=== PATIENT | male | born 1955 | race Caucasian/White ===

== ENCOUNTER 2019-08-02 01:09 | Day surgery (SDC) | payer OTHER, SELFPAY ==
[2019-07-24 15:25] VITALS: BMI 24.3
--- NOTE | 2019-08-01 08:22 | PM.IMHP ---
H&P: HPI History of Present Illness Chief complaint: Left Knee Prepatellar Bursitis Narrative: Chidi Branch is a 63 year old male chief complaint left knee pain and swelling. Fluid anterior to the patella. Has had multiple aspirations. Fluid continues to recur causing prominence and pain with motion and pressure. Lt knee pain/swelling. Last injection on 06/21. Involved knee: left Onset: gradual Location of pain: anterior and other (patella) Character: dull ache Timing of pain: constant Exacerbated by: prolonged activity Relieved by: other (injection and aspiration of fluid) Associated symptoms: Reports swelling and erythema History of occupational/recreational activity with repetitive motion: No History of prior knee injury: No *Chief Complaint Chief Complaint: see Reason for Visit Duration: years Severity: moderate Associated signs and symptoms: symptoms reported: (see hpi ) Exacerbating/relieving factors: exacerbating factors: (see hpi ) and relieving factors: (see hpi ) Review of Systems Constitutional: Constitutional: Denies fever(s) Eyes: Eyes: Denies blurry vision ENT: Reports Normal hearing present Cardiovascular: Cardiovascular: Denies chest pain and Denies dyspnea Respiratory: Respiratory: Denies dyspnea and Denies wheezing Gastrointestinal: Gastrointestinal: Denies abdominal pain Genitourinary: Genitourinary: Denies urinary urgency Musculoskeletal: Musculoskeletal: Reports as per HPI and Denies numbness Integumentary/Breasts: Skin/Breast: Denies changing lesions and Denies sores Neurologic: Reports Normal hearing present, Denies behavioral changes, Denies confusion, Denies numbness and Denies convulsions Psychiatric: Psychiatric: Denies behavioral changes, Denies confusion and Denies hallucinations Endocrine: Endocrine: Denies heat intolerance Hematologic/Lymphatic: Hematologic/Lymphatic: Denies easy bleeding Allergic/Immunologic: Allergic/Immunologic: Denies wheezing PMF Past Medical History Medical History Prepatellar bursitis Family History Family History Father Cerebrovascular accident Family history of heart disease in male family member before age 55 Other Diabetes mellitus Hypertension Social History Social History Smoking status: Never smoker Alcohol intake: current Meds Home Medications and Allergies Home Medications Medication Instructions Recorded Confirmed Type lisinopril 20 mg tablet 20 mg PO DAILY #90 tablet 07/18/19 07/24/19 Rx metformin 1,000 mg PO QPM 07/24/19 07/24/19 History multivitamin 1 tablet PO DAILY 07/24/19 07/24/19 History omega 3-kco-eim-fish oil [Fish Oil] 1 cap PO DAILY 07/24/19 07/24/19 History sildenafil (pulm.hypertension) 20 mg PO DIRECTED 07/24/19 07/24/19 History simvastatin 80 mg PO QPM 07/24/19 07/24/19 History Allergies Allergy/AdvReac Type Severity Reaction Status Date / Time cephalexin Allergy Unknown Pruritic Verified 07/24/19 15:27 rash Cephalosporins Allergy Unknown RASH Verified 07/24/19 15:27 Sulfa (Sulfonamide Allergy Unknown Unknown Verified 07/24/19 15:27 Antibiotics) Exam Extrem: Other: Const Constitutional General: healthy appearing; No in distress or confused Orientation/consciousness: oriented to person, oriented to place, oriented to time and No confused HENAK Head: normal to inspection, normocephalic and atraumatic Eyes Conjunctivae: Yes conjunctivae normal Sclera: sclerae normal Neck Neck: Yes supple and No tender Resp Effort & Inspection: normal respiratory effort and no audible wheezes Cardio Rate: Yes regular rate Rhythm: regular rhythm Skin General skin exam: no rashes or lesions noted Neuro General: Yes oriented to person, Yes oriented to place, Yes oriented to time and No confusion Extrem Right upper extremity: n
--- NOTE | 2019-08-02 07:15 | WPDHPUPDATE1 ---
History and Physical Update Update Date/Time: 08/02/19 07:15 History and Physical has been reviewed, including an updated exam of the patient. There are NO changes in the patient's condition. Risks, benefits, and alternatives have been discussed and questions answered. Patient agrees to proceed with procedure.
[2019-08-02] MEDS: LACTATED RINGERS 1,000 ML 30 ML IV CONT (10:00)
[2019-08-02] MEDS: IBUPROFEN IV 800 MG/200 ML 800 MG/200 ML BAG 400 MG IVPB (10:09)
[2019-08-02 10:13] VITALS: BP 146/81; PULSE 65; RESP 16; TEMP 36; O2SAT 100
--- NOTE | 2019-08-02 10:58 | P.PNAN_ITS ---
Anes - Initial Pre Proc Eval Procedure: Operation Date: 08/02/19 11:30 Proposed Procedures p Excision Prepatellar Bursa Left Knee - Nino Costello MD Date/Time: 08/02/19 10:58 Surgeon: Nino Costello MD Pre Op Diagnosis: Left Knee Prepatellar Bursitis Patient Data Age: 63 Gender: M Height: 1.91 m Weight: 89 kg Last Vital Signs Temp 36.0 C L 08/02/19 10:13 Pulse 65 08/02/19 10:13 Resp 16 08/02/19 10:13 BP 146/81 H 08/02/19 10:13 Pulse Ox 100 08/02/19 10:13 Allergies Allergy/AdvReac Type Severity Reaction Status Date / Time Cephalosporins Allergy Severe RASH Verified 08/02/19 09:42 cephalexin Allergy Unknown Pruritic Verified 07/24/19 15:27 rash Home Medications Medication Instructions Recorded Confirmed Type lisinopril 20 mg tablet 20 mg PO DAILY #90 tablet 07/18/19 08/02/19 Rx metformin 1,000 mg PO QPM 07/24/19 08/02/19 History multivitamin 1 tablet PO DAILY 07/24/19 08/02/19 History omega 8-bqx-qwa-fish oil [Fish Oil] 1 cap PO DAILY 07/24/19 08/02/19 History sildenafil (pulm.hypertension) 20 mg PO DIRECTED 07/24/19 08/02/19 History simvastatin 80 mg PO QPM 07/24/19 08/02/19 History Patient hx anesthesia problems: none Family hx anesthesia problems: none PMFSH Past Medical History Medical History (Updated 08/02/19 @ 10:59 by Gurwinder Wilson MD) Diabetes HTN (hypertension) Hypercholesterolemia Prepatellar bursitis Psoriasis Family History Family History Father Cerebrovascular accident Family history of heart disease in male family member before age 55 Other Diabetes mellitus Hypertension Social History Social History Smoking status: Never smoker Alcohol intake: current Anes - Eval Final PreProcedure Day of Procedure 08/02/19 10:58 Patient weight: normal Heart: regular rate and rhythm Lungs: clear to auscultation and normal air movement Airway: Mallampati scale class II Neurological: alert and oriented Last oral intake: >/= 8 hours ASA classification: III Emergent: no Anesthetic plan: proceed Anesthesia type and monitoring: general LMA Informed Consent: The patient's anesthetic plan and its attendant risks and benefits were discussed with the patient/family/POA. Questions were solicited an d answers provided to the satisfaction of the patient/family/POA.
[2019-08-02] MEDS: CLINDAMYCIN 900 MG/NS 50 ML 900 MG/50 ML PIGGYBACK 50 MG IVPB (11:36)
[2019-08-02] MEDS: BUPIVACAINE/EPINEPHRINE 0.5% 30 ML VIAL INFILTRATE (11:55)
[2019-08-02 12:33] VITALS: BP 115/82; PULSE 65; RESP 14; TEMP 36.4; O2SAT 97
--- NOTE | 2019-08-02 12:42 | PM.PROC ---
Procedure Note - Detailed Date of procedure: 08/02/19 Pre-op diagnosis: Left Knee Prepatellar Bursitis Post-op diagnosis: same Procedure performed: Excision of bursa left knee Description of procedure: Patient identified in the preoperative holding. Informed consent given. Operative extremity marked. Patient received intravenous antibiotics. Patient brought to the operating room where underwent general anesthetic by anesthesia team. Positioned supine on operating room table. Time-out performed confirming the patient, site of the surgery and the plan. Left knee prepped and draped usual sterile surgical fashion using ChloraPrep skin solution. Local anesthetic with 0.5% Marcaine with epinephrine used around the prepatellar bursa. Longitudinal incision made with 15 blade knife over the bursa which was rather large. Approximately 50 mm x 40 mm in size. Incision deepened down through subcutaneous tissue and the interval between the subcutaneous tissue and the bursal sac itself was developed proximally distally medially and laterally. The bursa sac was then elevated off of the deep fascial tissue with blunt as well as sharp dissection. The bursal sac was then removed. It was noted be full of clear appearing serous fluid. Any extra bursal tissue was sharply excised with a 15 blade knife. Bleeding points were coagulated with electrocautery. Wound was thoroughly irrigated antibiotic solution. Deep tissue was approximated using 2 Vicryl interrupted suture. Subcutaneous tissue repaired with 3 0 Monocryl interrupted suture and the skin was approximated with a 3 0 Monocryl running subcuticular stitch. Sterile dressing was then applied followed by an Lawrence wrap. Patient was then awoke from anesthesia, extubated and taken to the recovery room in stable condition. All sponge needle and instrument counts correct in the case. Anesthesia: GLMA Surgeon: Nino Costello MD Mechanical Spreader Operator: 1st dam tender assistant Estimated blood loss (mL): 10 Tourniquet time (min): 0 Drains: No Packing: No Pathology: none sent Complications: None Condition: stable Disposition: PACU
[2019-08-02 12:45] VITALS: BP 130/90; PULSE 64; RESP 16; O2SAT 99
[2019-08-02 13:00] VITALS: BP 137/88; PULSE 67; RESP 16; O2SAT 100
[2019-08-02 13:06] VITALS: BP 138/87; PULSE 55; RESP 14
[2019-08-02 13:35] VITALS: BP 138/84; PULSE 69; RESP 14
== END 2019-08-02 13:49 | disposition home or self-care (01) ==
PROVIDERS: PCP Internal Medicine; Visit Provider Orthopaedic Surgery
PROC: (CPT 27340; principal; 2019-08-02 11:30)
DX: M70.42 Prepatellar bursitis, left knee (principal); I10 Essential (primary) hypertension; E11.9 Type 2 diabetes mellitus without complications; E78.00 Pure hypercholesterolemia, unspecified; L40.9 Psoriasis, unspecified; Z79.84 Long term (current) use of oral hypoglycemic drugs
CPT/HCPCS: 27340; J1100; J1580; J1741; J2250; J2405; J2704; J3010; J7120

== ENCOUNTER 2023-08-20 10:21 | Emergency (ER) | payer OTHER, SELFPAY ==
[2023-08-20 10:35] VITALS: BP 130/71; PULSE 66; RESP 16; TEMP 36.7; O2SAT 99
--- NOTE | 2023-08-20 11:02 | ED.URI ---
HPI - URI/Sore Throat General Chief Complaint: Upper Respiratory Infection Stated Complaint: Chest Congestion;Cough Time Seen by Provider: 08/20/23 10:54 Source: patient and RN notes reviewed Mode of arrival: ambulatory Limitations: no limitations History of Present Illness HPI Narrative: Patient presents today complaining of a 2 week history of cough that was worse last night. Denies fever shortness of breath. He also reports some mild rhinorrhea. He has tried Tylenol, ibuprofen, Delsym, Em, and Zicam. He felt that the Em and Zicam were helpful. No history of asthma or COPD. He is a nonsmoker. Related Data Home Medications Medication Instructions Recorded Confirmed multivitamin 1 tablet PO DAILY 07/24/19 12/22/22 omega 0-hsx-dpa-fish oil 1,000 mg 1 cap PO DAILY 07/24/19 12/22/22 (120 mg-180 mg) capsule (Fish Oil) Allergies Allergy/AdvReac Type Severity Reaction Status Date / Time cephalexin Allergy Severe Pruritic Verified 09/09/22 10:59 rash Cephalosporins Allergy Severe RASH Verified 09/09/22 10:59 Review of Systems Review of Systems: CONSTITUTIONAL: Denies body aches, fever, chills, or sweats. EYES: Denies visual changes, redness, or discharge. ENT: Denies congestion, sore throat, or otalgia.+ rhinorrhea CARDIOVASCULAR: Denies chest pain, palpitations, or edema. RESPIRATORY: Denies dyspnea.+ cough GASTROINTESTINAL: Denies abdominal pain, nausea, vomiting, or diarrhea. GENITOURINARY: Denies dysuria or hematuria. SKIN: Denies rash, itching, or wounds. MUSCULOSKELETAL: Denies back pain, joint pain, or myalgia. NEUROLOGIC: Denies headache, numbness, tingling, or weakness. PSYCH: Denies depression or anxiety. [facility] Past Medical History Medical History Diabetes Epidermal inclusion cyst HTN (hypertension) Hypercholesterolemia Lateral dislocation of left patella Prepatellar bursitis Psoriasis URI (upper respiratory infection) Surgical History Surgical History H/O cervical discectomy H/O toe surgery Hx of inguinal hernia surgery Family History Family History Father Cerebrovascular accident Family history of heart disease in male family member before age 55 Other Diabetes mellitus Hypertension Social History Social History Smoking status: Never smoker Alcohol intake: current Drinks per week: 4 Substance use: never Substance use type: does not use Lack of Transportation: No Lack of Food: Never True Current Housing: I Have Housing Concerned About Future Housing: No Difficulty Paying Gas/Electric Bills: No Difficulty Paying for Meds: No Currently Unemployed: No Difficulty w/ Childcare or Family Care: No Living arrangements: with family Occupation/Education: occupation Gender identity (if verbalized by the patient): Male Comments At time of signature, I have reviewed and agree with nursing past medical, surgical, social and family history unless otherwise noted. Please see nursing chart for further information. There is no relevant family history pertinent to the presenting complaint Exam Narrative: GENERAL: Well-appearing, well-nourished, and in no acute distress. HEAD: Normocephalic, atraumatic. EYES: EOMI. No redness or drainage. Conjunctivae normal. ENT: Mucous membranes pink and moist. Nares clear. No rhinorrhea. TMs normal bilaterally. Throat normal. Uvula midline. NECK: Normal AROM. Supple. No lymphadenopathy. CHEST: No respiratory distress. Inspiratory wheeze throughout. HEART: Regular rate and rhythm. No murmur appreciated. EXTREMITIES: Normal range of motion. No edema. SKIN: Warm, dry, no rash. Capillary refill normal. Normal skin turgor. NEURO: No focal deficits. Alert and
== END 2023-08-20 11:10 | disposition home or self-care (01) ==
PROVIDERS: Emergency Provider Nurse Practitioner; PCP Physician Assistant Medical
DX: J06.9 Acute upper respiratory infection, unspecified (principal); E11.9 Type 2 diabetes mellitus without complications; I10 Essential (primary) hypertension; E78.00 Pure hypercholesterolemia, unspecified; L40.9 Psoriasis, unspecified
CPT/HCPCS: 99213; G0463

== ENCOUNTER 2025-04-02 01:47 | Day surgery (SDC) | payer OTHER, SELFPAY ==
[2025-03-19 14:37] VITALS: BMI 24.3
--- OUTSIDE RECORDS SUMMARY | 2025-04-02 01:49 | XMS_ITS | Encounter Summary ---
Author Organization [facility] Address [address] [place] [address] Care Team Providers Care Tab Builder Name Role Phone Hay Mcclure MD Primary Care Provider [phone] Encounter Details Date Type Department Care Team (Late Contact Info) Description 10/09/2024 Telephone [facility] - Centralized Scheduling [address] [place] [id number] Abe Hickey MD [address] [place] [address] [place] [address] Social History Tobacco Use Types Packs/Day Years Used Date Smoking Tobacco: Never Smokeless Tobacco: Never Alcohol Use Standard Drinks/Week Comments Yes 0 (1 standard drink = 0.6 oz pur e alcohol) Sex and Gender Information Value Date Recorded Sex Assigned at Not on file Legal Sex Male 6:18 PM BOOK SEWER Gender Identity Not on file Sexual Orientation Not on file documented as of this encounter Miscellaneous Notes * Telephone Encounter - Singh Nava - 10/09/2024 3:24 PM CDT Pt calling to get med refill for Fluoroucil. Would like a call back in reference to this documented in this encounter Plan of Treatment Upcoming Encounters Date Type Department Care Team ([facility] Contact Info) Description 09/03/2025 2:20 PM BOOK SEWER Office Visit [facility] - Dermatology [address] [place] [address], [facility] [place] [id number] Abe Hickey MD [address] [facility] [address] [place] [address] documented as of this encounter Visit Diagnoses Not on filedocumented in this encounter Care Teams Tab Builder Relationship Specialty Start Date End Date Hay Mcclure MD [address] [address] PCP - General 04/05/14 documented as of this encounter
--- OUTSIDE RECORDS SUMMARY | 2025-04-02 01:49 | XMS_ITS | Clinical Summary ---
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 MANAGER Gender Identity Not on file Sexual Orientation Not on file Plan of Treatment Health Maintenance Due Date Last Done Comments Hepatitis C Virus (HCV) Screening 1955 TdaP Immunization 1957 Cologuard 2002 Colonoscopy 2002 Colorectal Cancer Screening 2002 Immunochemical Fecal Occult Blood 2002 Pneumococcal Immunization (5 0+ years) (1 of 1 - PCV) 11/13/2007 Zoster Immunization (2 of 3) 06/08/2017 04/13/2017 Influenza Immunization (#1) 03/04/202501/2017, 07/31/2016, 06/07/2012 SARS-COV-2 Immunization (3 - season) 2025 06/02/2021, 09/09/2020 Respiratory Syncytial Virus (RSV) Immunization (Adult) (1 - 1-dose 75+ series) 2032 Hepatitis B Immunization Aged Out No longer eligible based on patient's age to complete this topic Human Papillomavirus (HPV) Immunization Aged Out No longer eligible b ased on patient's age to complete this topic Meningococcal Immunization (ACWY) Aged Out No longer eligible b ased on patient's age to complete this topic Rotavirus Immunization Aged Out No lo nger eligible based on patient's age to complete this topic
--- OUTSIDE RECORDS SUMMARY | 2025-04-02 01:49 | XMS_ITS | Encounter Summary ---
Author Organization [facility] Address [address] [place] [address] Care Team Providers Care Bleach Chlorinator Name Role Phone Hay Mcclure MD Primary Care Provider UnaHumaira Pereira Primary Care Provider [phone] Encounter Details Date Type Department Care Team (Late st Contact Info) Description 03/07/2019 Hospital Follow-up Call [facility] Med/Surg [address] [place] [address] Maria Antonia Polanco RN Social History Tobacco Use Types Packs/Day Years Used Date Smoking Tobacco: Never Smokeless Tobacco: Never Alcohol Use Standard Drinks/Week Comments Yes 8.3 (1 standard drink = 0.6 oz p ure alcohol) Hunger Vital Sign Answer Date Recorded Worried About Running Out of Food in the Last Ye ar Never true 03/02/2019 Ran Out of Food in the Last Year Never true 03/02/2019 PRAPARE - Transportation Answer Date Re corded Lack of Transportation (Medical) No 03/02/2019 Lack of Transportation (Non-Medical) No 03/02/2019 Sex and Gender Information Value Date Recorded Sex Assigned at Not on file Legal Sex Male 8:25 PM CDT Gender Identity Male 03/02/2019 8:57 PM CDT Sexual Orientation Straight 03/02/2019 8: 57 PM CDT documented as of this encounter Functional Status * RETIRED Are you deaf or do you have serious difficulty hearing Answer Date of Assessment Author Status No 03/04/2019 12:12 PM CDT Acti ve * RETIRED Are you blind or do you have serious difficulty seeing, even when wearing glasses? Answer Date of Assessment Author Status No 03/04/2019 12:12 PM CDT Acti ve * Do you have serious difficulty walking or climbing stairs? Answer Date of Assessment Author Status No 03/04/2019 12:12 PM Kyleigh Rodriguez RN Active * Do you have difficulty dressing or bathing? Answer Date of Assessment Author Status No 03/04/2019 12:12 PM Kyleigh Rodriguez RN Active * Because of a physical, mental, or emotional condition, do you have difficulty doing errands alone such as visiting a doctor's office or shopping? Answer Date of Assessment Author Status No 03/04/2019 12:12 PM Kyleigh Rodriguez RN Active documented as of this encounter Mental Status * Because of a physical, mental, or emotional condition, do you have serious difficulty concentrating, remembering, or making decisions? Answer Entry Date Author Status No 03/04/2019 12:12 PM Kyleigh Rodriguez RN Active documented in this encounter Plan of Treatment Not on file documented as of this encounter Visit Diagnoses Not on filedocumented in this encounter Care Teams Bleach Chlorinator Relationship Specialty Start Date End Date Hay Mcclure MD PCP - General INTERNAL MEDICINE 01/03/18 07/22/21 Humaira Beltran PA PCP - General PHYSICIAN TYRE RETREADER 07/23/21 documented as of this encounter
--- OUTSIDE RECORDS SUMMARY | 2025-04-02 01:49 | XMS_ITS | Clinical Summary ---
Author Organization [facility] [place] [address] [facility] [address] [place] [address] Care Team Providers Care English And Reading Instructor Name Role Phone Humaira Beltran Primary Care Provider [phone] Allergies Active Allergy Reactions Criticality Noted Date Comments Cephalexin Rash Medium 05/10/2014 Medications multivitamin tablet Take 1 tablet by mouth daily Active omega-3 fatty acids-fish oil 300-1,000 mg capsule Take 2 capsules (2 g total) by mouth daily Active metFORMIN (GLUCOPHAGE) 500 mg tablet Take 1 tablet (500 mg total) by mouth daily Active lisinopriL (PRINIVIL,ZESTRIL ) 20 mg tablet Take 1 tablet (20 mg total) by mouth daily Active simvastatin (ZOCOR) 80 mg tablet Take 1 tablet (80 mg total) by mouth nightly Active betamethasone dipropionate (DIPROSONE) 0.05 % lotion Apply topically as needed 2 Active sildenafiL, pulm.hypertension , (REVATIO) 20 mg tablet TAKE 1 TABLET BY MOUTH 30 TO 60 MINUTES BEFORE ACTIVITY DIRECTED 3 Active Farxiga 5 mg tablet Take 1 tablet (5 mg total) by mouth daily 3 Active Active Problems Problem Noted Date Diagnosed Date Other chest pain 02/16/2023 Surgical History Surgery Date Site/Laterality Comments TOE SURGERY INGUINAL HERNIA REPAIR Medical History Medical History Date Comments Diabetes mellitus Chest pain Hyperlipidemia Hypertension URI (upper respiratory infection) Psoriasis Family History Medical History Relation Name Comments Heart disease Father Stroke Father Relation Name Status Comments Father Mother Alive Social History Tobacco Use Types Packs/Day Years Used Date Smoking Tobacco: Never Tobacco Cessation:Counseling Given: Not Answered Personal Safety Answer Date Recorded Getting School Help Needed Not on file 03/03 /2024 Sex and Gender Information Value Date Recorded Sex Assigned at Not on file Legal Sex Male 7:22 PM DOCENT COORDINATOR Gender Identity Not on file Sexual Orientation Not on file Obstetrics History Last Filed Vital Signs Vital Sign Reading Time Taken Comments Blood Pressure 118/78 04/19/2023 8:45 AM CDT Pulse 63 04/19/2023 8:45 AM CDT Temperature - - Respiratory Rate - - Oxygen Saturation 98% 04/19/2023 8:45 AM CDT Inhaled Oxygen Concentration - - Weight 91.2 kg (201 lb) 04/19/2023 8:45 AM CDT Height 188 cm (6' 2) 04/19/2023 8:45 AM CDT Body Mass Index 25.81 04/19/2023 8:45 AM CDT Plan of Treatment Health Maintenance Due Date Last Done Comments Colon Cancer Screening-Colonoscopy 1957 Depression Screening 1957 Fall Risk Assessment 1957 Hepatitis C Screening 1957 Prostate Cancer Screening-PSA 1957 DTaP/Tdap/Td Vaccine (1 - Tdap) 1968 Hepatitis B Screening 11/13/1975 Pneumococcal vaccine 65+ (2 of 2 - PCV) 06/15/2019 06/15/2018 Abdominal Aortic Aneurysm (A AA) Screen 2022 Well Visit 65+ 2022 Covid-19 Vaccine (3 - 2024-2 6 season) 2025 06/02/2021, 09/09/2020 Influenza Vaccine (#1) 2025 , 04/13/2021, 04/21/2020, Additional history exists Zoster Vaccine Completed 10/12/2018, 06/03, 04/13/2017 Insurance MEDICARE [facility] MEDICARE Care Teams English And Reading Instructor Relationship Specialty Start Date End Date Humaira Beltran PA [address] [place] [address] PCP - General Physician Veterinary Attendant 12/24/22
--- OUTSIDE RECORDS SUMMARY | 2025-04-02 01:49 | XMS_ITS | Clinical Summary ---
Author Organization [facility] Address [address] [place] [address] Care Team Providers Care Kelly Machine Operator Name Role Phone Hay Mcclure MD Primary Care Provider [phone] Source Comments [facility],non-owned Affiliates and Associated Physician Practices is amultiple site organization consisting of ambulatory clinics and hospital sitesin [place], [place], [place] and [place]. This disclosure is being madepursuant to the Care Everywhere program and may not contain all information available regarding this patient. Last updated 18.[facility] Allergies Active Allergy Reactions Criticality Noted Date Comments Cephalexin Rash Medium 05/10/2014 Medications * Be aware that medications may not be up to date on this document. Alwaysverify current medications with the patient. metFORMIN (GLUCOPHAGE) 500 MG tablet Take 1 (one) tablet by mouth once daily Active [place]-3 Fatty Acids (FISH OIL) 1200 MG Take 1 capsule by mouth once daily Active simvastatin (ZOCOR) 80 MG tablet Take 1 (one) tablet by mouth at bedtime 2 8 Active lisinopril (PRINIVIL; ZESTRIL) 20 MG tablet Take 1 (one) tablet by mouth once daily Active betamethasone dipropionate 0.05 % lotion Apply to affected area as needed 60 mL 2 2 Active Farxiga 5 MG tablet Take 1 (one) tablet by mouth once daily 3 Active Multiple Vitamin (Multi-Vitamin) TABS Take 1 (one) tablet by mouth once daily Active fluocinonide (Lidex) 0.05 % solution APPLY TOPICALLY TO THE AFFECTED AREA TWICE DAILY NEEDED FOR ITCHING 4 Active mometasone (Elocon) 0.1 % ointment Apply to affected areas on back once daily. 30 days supply. 45 g 5 5 Active fluorouracil (Efudex) 5 % creamIndications :Actinic keratosis Apply to back of hands and forearms twice daily for two weeks. 40 g 3 5 Active Additional Information Patient not taking.Reported on 01/07/2025 Active Problems Problem Noted Date Diagnosed Date History of nonmelanoma skin cancer 08/18/2024 Neoplasm of uncertain behavior of skin Assessment & Plan (09/02/2020 7:36 PM CARDIAC RN): Rt medial brow Favor IDN Wants cos removal, discussed shave removal vs narrow excision vs smooth beam w cosmetics (number provided) Pt will consider and decide Inflamed seborrheic keratosis 12/14/2019 Assessment & Plan (09/02/2020 7:35 PM CARDIAC RN): LN2 to one lesion left palpebromalar groove wc reviewed Seborrheic keratosis 12/14/2019 Xerosis cutis 12/14/2019 Cellulitis of right arm 03/02/2019 Solar lentiginosis 07/17/2018 Other psoriasis 01/12/2018 Assessment & Plan (09/02/2020 7:37 PM CARDIAC RN): No active lesions at examined sites BMZ dip lotion prn Actinic keratosis 05/10/2014 Assessment & Plan (09/02/2020 7:33 PM CARDIAC RN): LN2 to AKs: 3 left neck, rt cheek x2, dorsal l hand x 2, rt fa x3, scalp x2=12 wc rev Efudex 5% cr to neck, temples, cheeks x2 wks (RFd) Encounters Date Type Department Care Team Description 02/15/2025 2:30 PM CDT Office Visit [facility] - Dermatology [address] [place] [address], [place] [id number] Abe Hickey MD Actinic keratosis (Primary Dx); Seborrheic keratosis; History of nonmelanoma skin cancer; Solar lentiginosis; Multiple benign melanocytic nevi of both upper extremities, both lower extremities, and trunk 02/15/2025 Travel 01/07/2025 9:30 AM CDT Office Visit [facility] - General Dermatology [address], [address] [place] [id number] Satinder Cerrato, CISCOC Actinic keratosis (Primary Dx); Lentigines; Seborrheic keratoses; Hx of nonmelanoma skin cancer 01/07/2025 Travel 12/31/2024 Telephone [facility] - Centralized Scheduling [address] [place] [address] Abe Hickey MD Appointment from Last 3 Months Immunizations Immunization Administration Dates Next Due INFLUENZA VACCINE 04/13/2021,04/22/2018 INFLUENZA VACCINE, QUADR. (F LUZONE; FLULAVAL; FLUARIX; AFLURIA QUADRIVALENT; 6MO+), 0.5 ML (IIV4) 04/21/2020,03/29/2019 Family History Medical History Relation Name Comments Eczema Maternal Grandfather Allergy (Severe) Neg Hx Asthma Neg Hx CVA Neg Hx Cancer Neg Hx Cancer - Breast Neg Hx Cancer - Other Neg Hx Cancer - Skin, Melanoma Neg Hx Cancer - Skin, Non Melanoma Neg Hx Hemophilia Neg Hx Psoriasis Neg Hx Rashes/Skin Problems Neg Hx Relation Name Status Comments Maternal Grandfather Social History Tobacco Use Types Packs/Day Years Used Date Smoking Tobacco: Never Smokeless Tobacco: Never Tobacco Cessation:Counseling Given: Not Answered Alcohol Use Standard Drinks/Week Comments Yes 0 (1 standard drink = 0.6 oz pur e alcohol) Sex and Gender Information Value Date Recorded Sex Assigned at Not on file Legal Sex Male 6:18 PM CARDIAC RN Gender Identity Not on file Sexual Orientation Not on file Plan of Treatment Upcoming Encounters Date Type Department Care Team (Late st Contact Info) Description 09/03/2025 2:20 PM CARDIAC RN Office Visit [facility] - Dermatology [address] [place] [address], [place] [phone] Abe Hickey MD [address] [place] [address] [address] [place] [address] Health Maintenance Due Date Last Done Comments COLOGUARD (AGES 45-75) - COLON CA SCREENING 1957 COLON MONITORING 1957 COLONOSCOPY - COLON CA SCREENING 1957 CT COLONOGRAPHY - COLON CA SCREENING 1955 Colorectal Cancer Screening 1957 FIT - COLON CA SCREENING 1957 FLEX SIG - COLON CA SCREENING 1957 HEPATITIS C SCREENING 11/08/1975 DTAP/TDAP/TD VACCINES (1 - Tdap) 1976 PNEUMOCOCCAL VACCINE 50+ (1 of 1 - PCV) 11/13/2007 ZOSTER VACCINE (1 of 2) 11/13/2007 Respiratory Syncytial Virus (RSV) Vaccine Pt: or over 60 yrs (1 - Risk 60-74 years 1-dose series) 2017 DEPRESSION SCREENING 07/04/2024 COVID-19 VACCINE (1 - season) 2025 INFLUENZA VACCINE (#1) 2025 , 04/21/2020, 03/29/2019, Additional history exists HEPATITIS B VACCINE Aged Out No longe r eligible based on patient's age to complete this topic HIB VACCINE Aged Out No longer eligi ble based on patient's age to complete this topic HPV VACCINE Aged Out No longer eligi ble based on patient's age to complete this topic MENINGOCOCCAL (Group B) VACCINE SHARED DECISION-MAKING Aged Out No longer eligible based on patient's age to complete this topic MENINGOCOCCAL GROUPS A/C/Y/W VACCINE Aged Out No longer eligible based on patient's age to complete this topic Procedures Procedure Name Priority Date/Time Associated Diagnosis Comments IA DSTRJ ALL PRMLG 15 OR MORE Routine 02/15/2025 2:41 PM CDT Actinic keratosis IA DESTROY PREMALIG LESION, 2-14 Routine 01/07/2025 9:20 AM CDT Actinic keratosis IA DESTROY PREMALIG LESION, 1ST LESION Routine 01/07/2025 9:20 AM CDT Actinic keratosis from Last 3 Months Results * IA DSTRJ ALL PRMLG 15 OR MORE (02/15/2025 2:41 PM CDT) Narrative Abe Hickey MD - 02/15/2025 2:41 PM CDT Abe Hickey MD 02/15/2025 3:33 PM Diagnosis and treatment options discussed. Liquid nitrogen was applied to >15 lesions (see office visit note for locations) for 6-10 seconds each for 1 cycle. Wound care reviewed. Swapna Fuentes MD PGY-4 Dermatology Resident us Abe Hickey MD PROCEDURE/MINOR SURGICAL ORDERA BLES Final Result * IA DESTROY PREMALIG LESION, 1ST LESION, IA DESTROY PREMALIG LESION, 2-14 (01/07/2025 9:20 AM CDT) Narrative Satinder Cerrato PA-C - 01/07/2025 9:20 AM CDT Satinder Cerrato PA-C 01/07/2025 9:23 AM Derm - Destruction Pre-malignant Date/Time: 01/07/2025 9:20 AM Performed by: Satinder Cerrato PA-C Authorized by: Satinder Cerrato PA-C Consent given by: patient Consent type: verbal Risks discussed with patient: scar formation, skin color change, need for further testing/treatment, pain, blistering and infection. Consent type: verbal Procedure details: Location information Scalp x 8, R ear x 2, L ear x 2, R hand x 1, L hand x 1 Number of standard lesions: 14 Total number of lesions: 14 Destruction method: cryotherapy Cryotherapy cycles: 1 Cryotherapy time per cycle (seconds): 5-7 Complications: none Wound care discussed with patient? yes Satinder Cerrato PA-C PROCEDURE/MINOR SURGICAL ORDERA BLES Final Result from Last 3 Months Insurance [facility] Care Teams Kelly Machine Operator Relationship Specialty Start Date End Date Hay Mcclure MD [address] [address] PCP - General 04/05/14
--- OUTSIDE RECORDS SUMMARY | 2025-04-02 01:49 | XMS_ITS | Encounter Summary ---
Author Organization [facility] Address [address] [place] [address] Care Team Providers Care Ehs Manager Name Role Phone Hay Mcclure MD Primary Care Provider [phone] Reason for Visit * Reason Onset Date Comments Question 02/21/2024 Encounter Details Date Type Department Care Team (Late st Contact Info) Description 02/21/2024 Telephone [facility] - Centralized Scheduling [address] [place] [phone] Abe Hickey MD [facility] [place] [address] Question Social History Tobacco Use Types Packs/Day Years Used Date Smoking Tobacco: Never Smokeless Tobacco: Never Alcohol Use Standard Drinks/Week Comments Yes 0 (1 standard drink = 0.6 oz pur e alcohol) Sex and Gender Information Value Date Recorded Sex Assigned at Not on file Legal Sex Male 6:18 PM TANK RIVETER Gender Identity Not on file Sexual Orientation Not on file documented as of this encounter Miscellaneous Notes * Telephone Encounter - Bautista Mota MD - 02/21/2024 2:27 PM CDT Results discussed with patient, see result note under biopsy * Telephone Encounter - Arjun Monica - 02/21/2024 9:15 AM CDT Current Provider: Ruperto Reason for Call: Patient called needing to speak to someone about what the next steps are after biopsy Patient Call Back Number: [phone] documented in this encounter Plan of Treatment Upcoming Encounters Date Type Department Care Team (Late st Contact Info) Description 09/03/2025 2:20 PM TANK RIVETER Office Visit [facility] - Dermatology [address] [place] [address], [place] [address] Abe Hickey MD [address] [place] [address] [address] [place] [address] documented as of this encounter Visit Diagnoses Not on filedocumented in this encounter Care Teams Ehs Manager Relationship Specialty Start Date End Date Hay Mcclure MD [address] [address] PCP - General 04/05/14 documented as of this encounter
--- OUTSIDE RECORDS SUMMARY | 2025-04-02 01:49 | XMS_ITS | Clinical Summary ---
Author Organization [facility] Address [facility] [place] [address] Care Team Providers Care Lean Manufacturing Leader Name Role Phone Devin Humaira ALFREDO Primary Care Provider [phone] Allergies Active Allergy Reactions Criticality Noted Date Comments Cephalexin Rash Medium 05/10/2014 Medications lisinopril 20 MG tablet Take 1 tablet (20 mg total) by mouth daily. Active metFORMIN 500 MG tablet Take 2 tablets (1,000 mg total) by mouth daily. Active multivitamin tablet Take 1 tablet by mouth daily. Active vitamin D3, cholecalciferol , 400 units tablet Take 1 tablet (400 Units total) by mouth daily. Active simvastatin 80 MG tablet Take 1 tablet (80 mg total) by mouth nightly at bedtime. 3 04/22/2018 Active Active Problems Problem Noted Date Diagnosed Date Psoriasis 03/03/2019 Cellulitis of right arm 03/02/2019 Colitis 01/04/2018 Family History Medical History Relation Comments Hypertension Father Stroke Father Hypertension Mother Hypertension Sister Relation Status Comments Father Mother Sister Social History Tobacco Use Types Packs/Day Years Used Date Smoking Tobacco: Never Smokeless Tobacco: Never Tobacco Cessation:Counseling Given: Not Answered Alcohol Use Standard Drinks/Week Comments Yes 8.3 [...] Orientation Straight 03/02/2019 8: 57 PM CDT Last Filed Vital Signs Vital Sign Reading Time Taken Comments Blood Pressure 128/77 12/08/2022 12:00 PM CDT Pulse 63 12/08/2022 12:00 PM CDT Temperature 36.7 C (98.1 F) 12/08/2022 12:00 PM CDT Respiratory Rate 18 12/08/2022 12:00 PM CDT Oxygen Saturation 100% 12/08/2022 12:00 PM CDT Inhaled Oxygen Concentration - - Weight 89.8 kg (198 lb) 12/08/2022 10:42 AM CDT Height 190.5 cm (6' 3) 12/08/2022 10:42 AM CDT Body Mass Index 24.75 12/08/2022 10:42 AM CDT Plan of Treatment Health Maintenance Due Date Last Done Comments Colorectal Cancer Screening Colonoscopy (10 Years) 1957 Hepatitis C 11/13/1975 DTaP, Tdap and Td Vaccines ( 1 - Tdap) 1976 Pneumococcal Vaccine: 50+ Years (1 of 1 - PCV) 11/13/2007 Zoster Vaccines (2 of 3) 06/08/2017 04/13/2017 COVID-19 Vaccine (3 - 2024-2 6 season) 2025 06/02/2021, 09/09/2020 RSV Immunization or 60+ Years (1 - 1-dose 75+ series) 2032 Meningococcal B Vaccine Aged Out No l onger eligible based on patient's age to complete this topic Meningococcal Vaccine Aged Out No evie ameena eligible based on patient's age to complete this topic RSV Immunizations Under 20 Months Aged Out No longer eligible b ased on patient's age to complete this topic Insurance R MEDICARE PART A Advance Directives * Full Code (Latest Code Status on File) Date Activated Date Inactivated Comments 03/02/2019 10:58 PM 03/04/2019 3:22 PM * Full Code Date Activated Date Inactivated Comments 01/04/2018 1:25 AM 01/05/2018 12:04 PM Care Teams Lean Manufacturing Leader Relationship Specialty Start Date End Date Humaira Beltran PA PCP - General PHYSICIAN CERAMICS INSTRUCTOR 07/23/21
[2025-04-02 06:23] VITALS: BP 123/70; PULSE 65; RESP 20; TEMP 36.6; O2SAT 100; BMI 23.5
[2025-04-02] MEDS: LACTATED RINGERS 1,000 ML 150 ML IV CONT (06:39)
--- NOTE | 2025-04-02 06:54 | P.PNAN_ITS ---
Anes - Initial Pre Proc Eval Procedure: Operation Date: 04/02/25 07:30 Proposed Procedures p Screening Colonoscopy - Bob Urias DO Date/Time: 04/02/25 06:54 Surgeon: Bob Urias DO Pre Op Diagnosis: Neoplasm screening Patient Data Age: 69 Gender: M Height: 1.91 m Weight: 85.3 kg Last Vital Signs Temp 97.8 F 04/02/25 06:23 Pulse 65 04/02/25 06:23 Resp 20 04/02/25 06:23 BP 123/70 04/02/25 06:23 Pulse Ox 100 04/02/25 06:23 O2 Del Method Room Air 04/02/25 06:23 Allergies Allergy/AdvReac Type Severity Reaction Status Date / Time cephalexin Allergy Severe Pruritic Verified 04/02/25 06:22 rash Cephalosporins Allergy Severe RASH Verified 03/19/25 14:35 Home Medications ?Medication ?Instructions ?Recorded ?Confirmed ?Type multivitamin 1 tablet PO DAILY 07/24/19 0 04/02/25 History omega 7-qsm-hjt-fish oil 1,000 mg 1 cap PO DAILY 07/2404/02/25 History (120 mg-180 mg) capsule (Fish Oil) fluocinonide 0.05 % topical 1 applic topical BID PRN i tching 06/15/24 04/02/25 Rx solution #20 mL dapagliflozin propanediol 5 mg 5 mg PO DAILY #90 tabs 01/28/25 04/02/25 Rx tablet (Farxiga) lisinopril 20 mg tablet 20 mg PO DAILY #90 tabs 01/0204/02/25 Rx metformin 500 mg tablet,extended 1,000 mg (2 x 500 mg) PO QPM #180 01/28/25 04/02/25 Rx release 24 hr tabs simvastatin 80 mg tablet 80 mg PO QPM #90 tabs 04/02/25 Rx Laboratory Tests 04/02/25 06:37 POC Capillary Glucose 107 H mg/dl (65-105) Patient hx anesthesia problems: none Family hx anesthesia problems: none Results Review: All pre-operative results and documents have been reviewed as part of the pre- operative evaluation. [facility] Past Medical History Medical History Lateral dislocation of left patella Epidermal inclusion cyst Psoriasis Diabetes HTN (hypertension) Prepatellar bursitis Surgical History Surgical History H/O toe surgery H/O cervical discectomy Hx of inguinal hernia surgery Family History Family History Father Cerebrovascular accident Family history of heart disease in male family member before age 55 Other Diabetes mellitus Hypertension Social History Social History Social History: 12/06/24 very confident with medical forms 01/25/25 patient declined SDOH Smoking status: Never smoker Alcohol intake: current Drinks per week: 4 Substance use: never Substance use type: does not use Do You Feel Safe in your Home?: Yes Lack of Transportation: No Lack of Food: Never True Current Housing: I Have Housing Concerned About Future Housing: No Difficulty Paying Gas/Electric Bills: No Difficulty Paying for Meds: No Currently Unemployed: No Education: Bachelor's Degree Difficulty w/ Childcare or Family Care: No Living arrangements: with family Occupation/Education: occupation Gender identity (if verbalized by the patient): Male Anes - Eval Final PreProcedure Day of Procedure 04/02/25 06:54 Patient weight: normal Lungs: normal air movement Airway: Mallampati scale class II Neurological: alert and oriented Last oral intake: >/= 8 hours ASA classification: III Emergent: no Anesthetic plan: proceed Anesthesia type and monitoring: general GIVS and standard monitoring Results Review: All pre-operative results and documents have been reviewed as part of the pre- operative evaluation. HTN, hyperlipidemia, DM fsbs 107. Informed Consent: The patient's anesthetic plan and its attendant risks and benefits were discussed with the patient/family/POA. Questions were solicited and answers provided to the satisfaction of the patient/family/POA.
--- NOTE | 2025-04-02 07:18 | PM.IMHP ---
H&P: HPI History of Present Illness Date/Time: 04/02/25 07:18 Chief Complaint: Screening for colorectal cancer, family history of colon cancer Narrative: 69 yo man presents for colonoscopy. this last colonoscopy was 10 years ago and was normal. He denies any hematochezia or melena. His mother did have colon cancer when she was around 90 years old. Review of Systems Review of Systems: All systems reviewed & are unremarkable except as noted in HPI and below Constitutional: Constitutional: Denies chills, Denies fever(s), Denies headache(s) and Denies weight loss Eyes: Eyes: Denies change in vision ENT: Denies dizziness, Denies headache(s), Denies neck mass and Denies throat swelling Cardiovascular: Cardiovascular: Denies chest pain, Denies lightheadedness and Denies dyspnea Respiratory: Respiratory: Denies cough, Denies dyspnea and Denies wheezing Gastrointestinal: Gastrointestinal: Denies abdominal pain, Denies change in bowel habits, Denies nausea and Denies vomiting Genitourinary: Genitourinary: Denies hematuria and Denies dysuria Musculoskeletal: Musculoskeletal: Reports as per HPI Integumentary/Breasts: Skin/Breast: Reports as per HPI Neurologic: Denies dizziness and Denies headache(s) Allergic/Immunologic: Allergic/Immunologic: Denies throat swelling and Denies wheezing PMFSH Past Medical History Medical History Lateral dislocation of left patella Epidermal inclusion cyst Psoriasis Diabetes HTN (hypertension) Prepatellar bursitis Surgical History Surgical History H/O toe surgery H/O cervical discectomy Hx of inguinal hernia surgery Family History Family History Father Cerebrovascular accident Family history of heart disease in male family member before age 55 Other Diabetes mellitus Hypertension Social History Social History Social History: 12/06/24 very confident with medical forms 01/25/25 patient declined SDOH Smoking status: Never smoker Alcohol intake: current Drinks per week: 4 Substance use: never Substance use type: does not use Do You Feel Safe in your Home?: Yes Lack of Transportation: No Lack of Food: Never True Current Housing: I Have Housing Concerned About Future Housing: No Difficulty Paying Gas/Electric Bills: No Difficulty Paying for Meds: No Currently Unemployed: No Education: Bachelor's Degree Difficulty w/ Childcare or Family Care: No Living arrangements: with family Occupation/Education: occupation Gender identity (if verbalized by the patient): Male Meds Home Medications and Allergies Home Medications ?Medication ?Instructions ?Recorded ?Confirmed ?Type multivitamin 1 tablet PO DAILY 07/24/19 04/02/25 History omega 6-svr-oea-fish oil 1,000 mg 1 cap PO DAILY 07/24/19 04/02/25 History (120 mg-180 mg) capsule (Fish Oil) fluocinonide 0.05 % topical 1 applic topical BID PRN itching 06/15/24 04/02/25 Rx solution #20 mL dapagliflozin propanediol 5 mg 5 mg PO DAILY #90 tabs 01/28/25 04/02/25 Rx tablet (Farxiga) lisinopril 20 mg tablet 20 mg PO DAILY #90 tabs 01/28/25 04/02/25 Rx metformin 500 mg tablet,extended 1,000 mg (2 x 500 mg) PO QPM #180 01/28/25 04/02/25 Rx release 24 hr tabs simvastatin 80 mg tablet 80 mg PO QPM #90 tabs 01/28/25 04/02/25 Rx Allergies Allergy/AdvReac Type Severity Reaction Status Date / Time cephalexin Allergy Severe Pruritic Verified 04/02/25 06:22 rash Cephalosporins Allergy Severe RASH Verified 03/19/25 14:35 Vital Signs Vital Signs - 24 hr 04/02/25 06:23 Temperature 97.8 F Pulse Rate 65 Respiratory Rate 20 Blood Pressure 123/70 Pulse Oximetry 100 Oxygen Delivery Room Air Exam Const: General: no acute distress and alert Orientation/consciousness: patient oriented x3 HENMT: Head: normocephalic and atraumatic Ears: hearing grossly normal bilaterally Face/Nose/Sinus: Normal nares present Mouth: Yes Normal oral and palatal mucosa present Eyes: Periorbital: periorbital findings normal Sclera: sclerae normal EOM: EOMs intact bilaterally Neck: Neck: normal visual inspection, no lymphadenopathy and trachea midline Chest: Chest palpation & inspection: normal inspection of the chest Resp: Effort & Inspection: normal respiratory effort Auscultation: clear to auscultation bilaterally Cardio: Jugular venous distension: no JVD Rate: regular rate Rhythm: regular rhythm Heart sounds: S1 normal heart sound present and S2 normal heart sound present Peripheral pulses: Peripheral pulses 2+ throughout GI: Inspection: normal to inspection GI Palp: Yes Soft to palpation, No Tenderness to palpation present (GI), No Guarding due to palpation present (GI) and No Rebound tenderness present Percussion: Yes normal to percussion Auscultation: normal bowel sounds : General: Yes no CVA tenderness Back/Spine/Pelvis: Back: no CVA tenderness Neuro: General: patient oriented x3, no focal motor deficits and CN's II-XI intact bilaterally Cognition (Neuro): normal cognition Speech: normal speech Motor exam (neuro): 5/5 motor strength present throughout Extrem: General: capillary refill normal and no clubbing, cyanosis or edema Assessment and Plan Assessment and plan (1) Screening for colorectal cancer: Code(s): Z12.11 - Encounter for screening for malignant neoplasm of colon; Z12.12 - Encounter for screening for malignant neoplasm of rectum Status: Acute Assessment and Plan: I have recommended colonoscopy. I have discussed the procedure, risks, benefits, and alternatives. Questions were answered. Patient is agreeable to proceed. (2) Family hx of colon cancer: Code(s): Z80.0 - Family history of malignant neoplasm of digestive organs Status: Acute
[2025-04-02 07:55] VITALS: BP 96/57; PULSE 58; RESP 16; O2SAT 98
[2025-04-02 08:05] VITALS: BP 113/80; PULSE 57; RESP 24; O2SAT 99
[2025-04-02 08:15] VITALS: BP 131/85; PULSE 57; RESP 21; O2SAT 99
== END 2025-04-02 08:25 | disposition home or self-care (01) ==
PROVIDERS: PCP Nurse Practitioner Family; Visit Provider Surgery
PROC: 0DJD8ZZ Inspection of Lower Intestinal Tract, Via Natural or Artificial Opening Endoscopic (ICD-10-PCS; CPT 45378; principal; 2025-04-02 07:30)
DX: Z12.11 Encounter for screening for malignant neoplasm of colon (principal); E78.5 Hyperlipidemia, unspecified; I10 Essential (primary) hypertension; E11.9 Type 2 diabetes mellitus without complications; L40.9 Psoriasis, unspecified; Z79.84 Long term (current) use of oral hypoglycemic drugs; Z98.890 Other specified postprocedural states; Z98.1 Arthrodesis status; Z80.0 Family history of malignant neoplasm of digestive organs; Z82.49 Family history of ischemic heart disease and other diseases of the circulatory system
CPT/HCPCS: 45378; 82948; J2003; J2704; J7120